=== PATIENT | male | born 1950 | race Caucasian/White ===

== ENCOUNTER 2020-11-21 15:26 | Emergency (ER) | payer OTHER, SELFPAY ==
--- NOTE | ~2020-11-21 | XR_ITS ---
EXAMINATION: XR ANKLE, RIGHT. XR TIBIA/FIBULA, RIGHT. CLINICAL INFORMATION: Pain after a fall one week ago COMPARISON: None TECHNIQUE: AP and lateral views of the right lower leg. 3 views of the right ankle. FINDINGS: No fracture. No radiopaque foreign body. The ankle mortise is preserved. Faint vascular calcifications are noted. XR/XR ankle RT min 3V IMPRESSION: No acute osseous abnormality.
--- NOTE | ~2020-11-21 | XR_ITS ---
EXAMINATION: XR ANKLE, RIGHT. XR TIBIA/FIBULA, RIGHT. CLINICAL INFORMATION: Pain after a fall one week ago COMPARISON: None TECHNIQUE: AP and lateral views of the right lower leg. 3 views of the right ankle. FINDINGS: No fracture. No radiopaque foreign body. The ankle mortise is preserved. Faint vascular calcifications are noted. XR/XR tibia fibula RT 2V IMPRESSION: No acute osseous abnormality.
--- NOTE | ~2020-11-21 | US_ITS ---
EXAMINATION: US VENOUS ULTRASOUND WITH DOPPLER LOWER EXTREMITY, BILATERAL CLINICAL INFORMATION: Edema COMPARISON: None TECHNIQUE: Ultrasound of the deep veins is performed from the hip to the calf with compression sonography and color and pulse Doppler assessment. Spectral analysis with color-flow imaging is performed. FINDINGS: RIGHT: There is normal venous compression and respiratory variation and augmented flow. The visualized common femoral vein, superficial femoral vein, profunda femoral vein, popliteal vein, and visualized posterior tibial and peroneal veins in the calf no evidence of deep venous thrombosis. There is no significant popliteal fossa cyst. There is an heterogeneity in the soft tissues in the proximal medial calf in the area of clinical concern. LEFT: There is normal venous compression and respiratory variation and augmented flow. The visualized common femoral vein, superficial femoral vein, profunda femoral vein, popliteal vein, and the visualized calf veins shows no evidence of deep venous thrombosis. There is no significant popliteal fossa cyst. . Prominent left groin lymph node measuring 0.8 cm in short axis, 3.8 cm in length. US/US venous duplex LE BI IMPRESSION: No DVT demonstrated in the bilateral lower extremities.. Mild heterogeneity in the subcutaneous tissues of the proximal medial calf in the area of clinical concern as indicated by the patient. Nonspecific prominent left groin lymph node measuring 0.8 cm in short axis.
[2020-11-21 15:34] VITALS: BP 137/72; PULSE 76; RESP 18; TEMP 36.2; O2SAT 98; BMI 29.4
--- NOTE | 2020-11-21 19:03 | PC.NURSE ---
PT DID NOT LWT, PT WAS IN ULTRASOUND
--- NOTE | 2020-11-21 19:43 | ED_ITS ---
HPI - Extremity Problem General Chief complaint: Extremity Problem Stated complaint: Leg swelling Time Seen by Provider: 11/21/20 18:42 Source: patient Mode of arrival: ambulatory Limitations: language barrier (Ugandan speaking only, gamb cutter used) History of Present Illness HPI Narrative: 70-year-old male who presents emergency department for evaluation of right ankle swelling, pain to his right ankle and right catheterization. The patient states that he fell twice approximately 1 week prior. He believes that he injured his ankle and his calf. He states that since the fall he has had trouble walking secondary to pain in his ankle and he has been using a cane. He also states that he feels a lump in the right medial calf area where he struck his calf when he fell. He states that the right calf and ankle are swollen compared to the left. He denied fever, chills, chest pain, shortness of breath, nausea, vomiting. Related Data Allergies Allergy/AdvReac Type Severity Reaction Status Date / Time No Known Allergies Allergy Verified 11/21/20 15:34 Review of Systems Review of Systems: Yes all other systems are reviewed and are negative [facility] Past Medical History [facility] Narrative: Past will history: Hypertension, myocardial infarction 17 years prior, asthma, vertigo, osteoarthritis. Past surgical history: None. Social history: The patient states that he is a former smoker but has not smoked in many years. He denies tobacco use at this time. He states that he drinks wine on the weekends. He states he occasionally smokes marijuana. Social History Social History Advance Directives: No Advance Directives Information Provided: No Physical Exam Vital Signs: Vital Signs: Last Vital Signs Temp 97.2 F 11/21/20 15:34 Pulse 76 11/21/20 15:34 Resp 18 11/21/20 15:34 BP 137/72 11/21/20 15:34 Pulse Ox 98 11/21/20 15:34 Body Mass Index 29.4 Const: General: cooperative and no acute distress Orientation/consc iousness: oriented to person and oriented to place Limitations: no limitations HENMT: Head: Yes normal to inspection, Yes normocephalic and Yes atraumatic Ears: external ears normal General nose exam: Normal external nose present Face and sinus: Yes normal facial exam Mouth: Normal oral and palatal mucosa present Throat: Yes posterior oropharynx normal Eyes: General: appearance normal, both eyes and all related structures Pupils: Equal, round and reactive pupils present Neck: Neck: Yes normal visual inspection, Yes no lymphadenopathy, Yes trachea midline and Yes supple Chest: Chest palpation & inspection: normal inspection of the chest and normal palpation of entire chest wall Resp: Effort & Inspection: normal respiratory effort and able to speak in complete sentences Auscultation: clear to auscultation bilaterally Cardio: Rate: regular rate Rhythm: regular rhythm Heart sounds: S1 normal heart sound present, S2 normal heart sound present and no murmurs GI: Inspection: Yes normal to inspection Palpation (GI): Soft to palpation, nontender and no guarding Auscultation: normal bowel sounds : General: Yes no CVA tenderness Back/Spine/Pelvis: Back: no CVA tenderness Skin: General skin exam: no rashes or lesions noted Neuro: General: oriented to person and oriented to place Cranial nerves: Yes CN's II-XII intact bilaterally and Yes Equal, round and reactive pupils present Cognition (Neuro): normal cognition Motor exam (neuro): 5/5 motor strength present throughout Extrem: Other: Right lower extremity: Bilateral soft tissue swelling over the medial and lateral malleolus with this swelling being larger medially, there is tenderness with patient of both these areas. Patient also has a well-defined he matoma over the proximal medial calf area, this is not tender to palpation, the patient's calves appear to be symmetric bilaterally. His extremities are neurovascularly intact, he has negative Homans sign bilaterally. Psych: Appearance: grossly normal Speech and movement: Normal speech and movement present Affect: normal affect Attitude: cooperative Thought process: Normal thought process present Thought content: Normal thought content present Course Course Course Narrative: 70-year-old male who presents emergency department for evaluation of right lower extremity swelling after having 2 falls 1 week prior. The patient's physical examination does reveal soft tissue swelling of both the medial and lateral malleolus of his right ankle with the medial aspect being greater than the left lateral aspect. His tenderness palpation of both of these areas. He also has a very well-defined hematoma which is palpable over the proximal medial calf area. Duplex ultrasound was obtained of the patient's right lower extremity and there was no DVT noted. The radiologist did note the hematoma mass on the ultrasound. X-rays of the patient's right ankle and right tib-fib will be obtained to rule out bony injury. 2056: The patient's x-rays of the right ankle and right tib-fib did not reveal any acute fractures. I did discuss this with the patient. The patient was discharged home. He was advised to take ibuprofen and Tylenol for his pain. He was given printed and verbal instructions prior to discharge. He will need to follow-up with his PCP and return if his symptoms get worse or if he develops any symptoms that are concerning to him. MDM - Extremity (Nontraumatic) Lab Data Labs: Lab Results 11/21/20 Range/Units 19:40 POC Glucose 95 (60-115) mg/dL Discharge Plan Discharge Clinical Impression: Right ankle sprain Qualifiers: Encounter type: initial encounter Involved ligament of ankle: unspecified ligament Qualified Code(s): S93.401A - Sprain of unspecified ligament of right ankle, initial encounter Hematoma of right lower extremity Qualifiers: Encounter type: initial encounter Qualified Code(s): S80.11XA - Contusion of right lower leg, initial encounter Patient Disposition: Home, Self-Care Instructions: Ankle Sprain (ED), Contusion in Adults (ED) Additional Instructions: The Doppler ultrasound of your right lower extremity did not reveal any blood clot in your veins, no evidence for a deep venous thrombosis (DVT). The x-ray of your right ankle and right lower extremity revealed no fractures/broken bones. The swelling in your ankle is caused by an ankle sprain, you must have twisted her ankle when he fell. Apply ice for 15 minutes 4 to 6 times a day for the next 2-3 days, keep your leg elevated this will help reduce the swelling You also have a blood clot in the muscle your calf, this is called a hematoma or bruise. Apply ice to this area as well and keep your leg elevated and this will help the hematoma go away. Take ibuprofen 200 mg pills, 2 pills every 6 hours as needed for pain. Take Tylenol (acetaminophen) 500 mg pills, 2 pills every 4 to 6 hours as needed for pain. Follow-up with your doctor in 2 days. Please return to the emergency department if your symptoms get worse or if you develop any symptoms that are concerning to you. The radiologist impressions are as follows: EXAMINATION:? US VENOUS ULTRASOUND WITH DOPPLER LOWER EXTREMITY, BILATERAL No DVT demonstrated in the bilateral lower extremities.. Mild heterogeneity in the subcutaneous tissues of the proximal medial calf in the area of clinical concern as indicated by the patient. Nonspecific prominent left groin lymph node measuring 0.8 cm in short axis. ? EXAMINATION:? US VENOUS ULTRASOUND WITH DOPPLER LOWER EXTREMITY, BILATERAL IMPRESSION: No acute osseous abnormality.?
[2020-11-21 19:49] LABS: Glucose, Whole Blood 95 mg/dL (60-115)
[2020-11-21 20:00] VITALS: BP 130/72; PULSE 79; RESP 18; TEMP 36.6; O2SAT 100
[2020-11-21 21:16] VITALS: BP 133/76; PULSE 72; RESP 18; TEMP 36.7; O2SAT 98
== END 2020-11-21 21:21 | disposition home or self-care (01) ==
PROVIDERS: Emergency Provider Emergency Medicine Emergency Medical Services; PCP Internal Medicine
DX: S93.401A Sprain of unspecified ligament of right ankle, initial encounter (principal); S80.11XA Contusion of right lower leg, initial encounter; R60.0 Localized edema; I10 Essential (primary) hypertension; J45.909 Unspecified asthma, uncomplicated; I25.2 Old myocardial infarction; W19.XXXA Unspecified fall, initial encounter; Y93.9 Activity, unspecified; Y92.9 Unspecified place or not applicable; Y99.9 Unspecified external cause status
CPT/HCPCS: 73590; 73610; 82947; 93970; 99284

== ENCOUNTER → 2020-12-13 09:01 | Outpatient (BNVA) | payer OTHER, SELFPAY | PROVIDERS: PCP Internal Medicine; Visit Provider Internal Medicine | DX: M47.12 Other spondylosis with myelopathy, cervical region (principal); M47.22 Other spondylosis with radiculopathy, cervical region; M79.7 Fibromyalgia; Z79.899 Other long term (current) drug therapy | CPT/HCPCS: 99202 ==

== ENCOUNTER 2021-10-16 08:33 | Emergency (ER) | payer OTHER, SELFPAY ==
[2021-10-16 08:38] VITALS: BP 136/76; PULSE 84; RESP 16; TEMP 36.6; O2SAT 99; BMI 28.5
[2021-10-16] MEDS: Tetracaine HCl/PF 0.5% Oph Sol 4 ML DROPS 1 DROP EYE-RIGHT (10:03)
[2021-10-16] MEDS: Fluorescein Sodium STRIP 1 STRIP EYE-RIGHT (10:03)
--- NOTE | 2021-10-16 10:12 | ED.EYEPROB ---
HPI - Eye Problem General Chief complaint: Eye Problems Stated complaint: R eye swollen x3 days Time Seen by Provider: 10/16/21 09:49 Source: patient Mode of arrival: ambulatory Limitations: language barrier ( Georgian-speaking medical diagnostic radiographer utilized) History of Present Illness HPI Narrative: patient presents emergency department for evaluation of right upper eyelid swelling and redness x3 days. Denies any trauma or foreign body entering the eye. He has been trying warm moist compresses without much improvement. Denies any itching to the eye, or purulent drainage. It is at times watery. Denies vision changes, headache. Denies fevers or chills. Related Data Home Medications Medication Instructions Recorded Confirmed amlodipine 10 mg tablet 10 mg PO DAILY 12/13/20 amoxicillin 500 mg tablet 500 mg PO BID 12/13/20 doxycycline hyclate 100 mg capsule 100 mg PO DAILY 12/13/20 erythromycin 250 mg tablet 250 mg PO BID 12/13/20 esomeprazole magnesium 40 mg 40 mg PO DAILY 12/13/20 capsule,delayed release finasteride 5 mg tablet 5 mg PO DAILY 12/13/20 fluticasone 250 mcg-salmeterol 50 1 inh inhalation BID 12/13/20 mcg/dose blistr powdr for inhalation (Wixela Inhub) gabapentin 400 mg capsule 400 mg PO TID 12/13/20 hydroxyzine HCl 25 mg tablet 25 mg PO BEDTIME 12/13/20 meloxicam 7.5 mg tablet 7.5 mg PO DAILY 12/13/20 methylprednisolone 4 mg tablet 4 mg PO DAILY 12/13/20 ropinirole 0.25 mg tablet 0.25 mg PO DAILY 12/13/20 sertraline 100 mg tablet 100 mg PO DAILY 12/13/20 tamsulosin 0.4 mg capsule 0.4 mg PO BEDTIME 12/13/20 tizanidine 4 mg capsule 4 mg PO BID PRN 12/13/20 trazodone 50 mg tablet 25 mg PO DAILY 12/13/20 Previous Rx's Medication Instructions Recorded erythromycin 5 mg/gram (0.5 %) eye 0.5 inch ophthalmic (eye) BID #3.5 10/16/21 ointment grams Allergies Allergy/AdvReac Type Severity Reaction Status Date / Time No Known Allergies Allergy Verified 12/13/20 09:04 Review of Systems Review of Systems: Constitutional: fever, chills, weakness or fatigue. ENT: No ear pain. No sore throat. No nasal congestion. Positive right eye redness. Skin: No rash or itching. Cardiovascular: No chest pain, chest pressure or chest discomfort. Respiratory: No shortness of breath, cough or sputum production. Gastrointestinal: No nausea, vomiting or diarrhea. Genitourinary: No burning micturition. No urinary frequency or incontinence. Musculoskeletal: No muscle pain, back pain, joint pain or stiffness. Psychiatric: No depression or anxiety. Yes all other systems are reviewed and are negative [facility] Past Medical History Attestation statement: The following information was validated with the patient. Source: old records reviewed Medical History Allergic rhinitis Anal fissure Anxiety Asthma Benign prostatic hyperplasia Chest pain Constipation Corrosive esophagitis Erectile dysfunction Fibromyalgia GERD with esophagitis Herpes zoster History of thrombocytopenia Hyperlipidemia Hypertension Internal and external hemorrhoids without complication Interstitial lung disease Left knee pain Migraine headache Obstructive sleep apnea Opioid dependence Osteoarthritis Osteoporosis Periodic limb movement disorder Preoperative cardiovascular examination Venous insufficiency Vitamin D deficiency Xerostomia Surgical History Hx of colonoscopy Social History Social History Advance Directives: No Advance Directives Information Provided: Yes Physical Exam Vital Signs: Vital Signs: Last Vital Signs Temp 97.8 F 10/16/21 08:38 Pulse 84 10/16/21 08:38 Resp 16 10/16/21 08:38 BP 136/76 10/16/21 08:38 Pulse Ox 99 10/16/21 08:38 O2 Del Method 10/16/21 08:38 BMI result Body Mass Index 28.5 Appearance: Alert.?Oriented to person, place and time. No acute distress.?Normal affect. Eyes: Pupils equal, round and reactive to light.?EOMi. No nystagmus. mechanical ptosis of the right upper eyelid.IOP 17 right, 15 left. No fluorescein uptake on exam ENT: Pharynx normal.?? Neck: Normal inspection.? Neck supple.?? CVS: Heart sounds normal. Normal heart rate and rhythm.? Pulses normal.?? Respiratory: No respiratory distress.? Lung sounds clear to auscultation bilaterally?? Abdomen: Soft and non-tender. Normoactive bowel sounds. No pulsatile mass.?? Skin: Skin warm and dry.? Normal skin color.? Normal skin turgor.?? Extremities: No lower extremity edema.? No calf ttp? Neuro: Moves all extremities spontaneously. Sensation intact bilaterally. No motor deficits Ambulates with normal steady gait. Course Course Course Narrative: patient is a 71-year-old male who presents emergency department for evaluation of right eyelid redness and swelling. He is overall well appearing, no distress, afebrile. Physical exam consistent with hordeolum and blepharitis. not consistent with preseptal cellulitis, orbital cellulitis, uveitis, scleritis, conjunctivitis, Corneal abrasion. Discussed plan of care for discharge home, hand hygiene, cleansing of the eye, warm moist compresses, and erythromycin ointment. Reviewed worrisome signs and symptoms to return back to the emergency department for. Advised outpatient follow-up with his primary care provider. Patient verbalized understanding and was discharged home in stable condition. Discharge Plan Discharge Clinical Impression: Hordeolum, Blepharitis Patient Disposition: Home, Self-Care Instructions: Stye (ED), Blepharitis (ED) Additional Instructions: apply warm moist compresses for 10-15 minutes multiple times a day. Wash hands with warm soap and water and gently scrubbed the eyelids. Apply erythromycin ointment, this is an antibiotic, to the right upper eyelid. Do not touch the tip of the applicator on to the skin of your eye, it should be held just above the eye and apply a very small amount return to the emergency department with any new or worsening symptoms, such as increased redness, swelling, pain, fevers, chills follow-up with your primary care provider aplique compresas h?medas tibias bryan 10-15 minutos varias veces al d?a. L?vese las viviane con agua tibia y jab?n y frote suavemente los p?rpados. Aplique pomada de eritromicina, samuel es un antibi?ilene, en el p?rpado superior derecho. No toque la piel del [place] con la punta del aplicador, debe sostenerse sean encima del [place] y aplicar esther cantidad muy veronica?a. regresar al departamento de emergencias con s?ntomas nuevos o que empeoran, shayla aumento del enrojecimiento, hinchaz?n, dolor, fiebre, escalofr?os seguimiento con powell proveedor de atenci?n primaria Prescriptions: New erythromycin 5 mg/gram (0.5 %) ointment 0.5 inch ophthalmic (eye) BID Qty: 3.5 0RF Interventions: ED Discharge Assessment Last Done: 10/16/21 10:59 Discharge Date/Time: 10/16/21 10:59 Print Language: Georgian
== END 2021-10-16 10:59 | disposition home or self-care (01) ==
PROVIDERS: Emergency Provider Emergency Medicine; PCP Internal Medicine
DX: H00.011 Hordeolum externum right upper eyelid (principal); H01.001 Unspecified blepharitis right upper eyelid; H57.11 Ocular pain, right eye; Z79.899 Other long term (current) drug therapy
CPT/HCPCS: 99282